=== PATIENT | male | born 1985 | race Caucasian/White ===

== ENCOUNTER 2019-07-10 05:18 | Emergency (ER) | payer SELFPAY ==
[~2019-07-10] VITALS: Ht 188 cm; Wt 158.8 kg
[2019-07-10] MEDS ORDERED: LABETALOL 20 MG/4 ML DISP.SYRIN. IVP ONE (05:45)
[2019-07-10] MEDS ORDERED: ASPIRIN 325 MG TABLET PO ONE (05:45)
--- NOTE | 2019-07-10 05:54 | RAD ---
EXAM: CHEST 1 VIEW History: SVT, chest pain COMPARISON: None available. TECHNIQUE: Single portable radiograph of the chest FINDINGS: The cardiac silhouette is unremarkable. The lungs are clear bilaterally. The costophrenic sulci are clear and well demarcated. IMPRESSION: No radiographic evidence of an acute cardiopulmonary process. Electronically signed by: Derrick Marrero MD (07/10/2019 5:51 AM) [facility]
[2019-07-10 06:04] LABS: BASO # 0.1 x10^3/uL (0.0-0.2); BASO % 1 % (0-3); EOS # 0.5 x10^3/uL (0.0-0.7); EOS % 5 % (0-3); HEMATOCRIT 49.3 % (39.0-53.0); HEMOGLOBIN 16.9 g/dL (13.0-17.5); LYMPH % 30 % (24-48); MEAN CORPUSCULAR HEMOGLOBIN 31 pg (25-35); MEAN CORPUSCULAR HGB CONC 34 g/dL (31-37); MEAN CORPUSCULAR VOLUME 90 fL (79-100); MONO # 0.7 x10^3/uL (0.0-1.1); MONO % 7 % (0-9); NEUT # 5.7 x10^3/uL (1.8-7.7); NEUT % 56 % (31-73); PLATELET COUNT 230 x10^3/uL (140-400); RED BLOOD COUNT 5.48 x10^6/uL (4.30-5.70); RED CELL DISTRIBUTION WIDTH 13.2 % (11.5-14.5); WHITE BLOOD COUNT 10.1 x10^3/uL (4.0-11.0)
--- NOTE | 2019-07-10 06:18 | PHYS DOC ---
Past Medical History Past Medical History: Other Additional Past Medical Histor: svt (TIAN MILLER MD) Alcohol Use: None Drug Use: None (TIAN MILLER MD) Adult General Chief Complaint Chief Complaint: RAPID HEART RATE HPI HPI 33-year-old male presents to the emergency department via EMS with complaints of chest pain, heart palpitations, shortness of breath. EMS arrived heart rate was around 180s, Valsalva maneuver used with improvement into the low 100s. Patient denies any nausea or vomiting. Patient has known history of hypertension however no medications. He has had history of palpitations in the past however lasting few seconds. The symptoms last longer of which he called EMS he denies any complaints at this time headache or visual changes, abdominal discomfort. Nothing makes his symptoms worse or better. (TIAN MILLER MD) Review of Systems Review of Systems Constitutional: Denies fever or chills [] Respiratory: + shortness of breath [] Cardiovascular: No additional information not addressed in HPI [] GI: Denies abdominal pain, nausea, vomiting, bloody stools or diarrhea [] Integument: Denies rash or skin lesions [] Neurologic: Denies headache, focal weakness or sensory changes [] All other systems were reviewed and found to be within normal limits, except as documented in this note. (TIAN MILLER MD) Current Medications Current Medications Current Medications Medications (Trade) Dose Ordered Sig/Shan Start Time Stop Time Status Last Admin Dose Admin Aspirin (Yue Aspirin) 325 mg 1X ONCE 07/10/19 05:45 07/10/19 05:46 DC 07/10/19 05:57 325 MG Labetalol HCl (Normodyne Iv Push) 10 mg 1X ONCE 07/10/19 05:45 07/10/19 05:46 DC 07/10/19 05:57 10 MG (MIC PETERS MD) Allergies Allergies Allergies Coded Allergies Type Severity Reaction Last Updated Verified No Known Drug Allergies 07/10/19 No (MIC PETERS MD) Physical Exam Physical Exam Constitutional: Well developed, well nourished, no acute distress, non-toxic appearance. [] Cardiovascular:Heart rate regular rhythm, no murmur [] Lungs & Thorax: Bilateral breath sounds clear to auscultation [] Abdomen: Bowel sounds normal, soft, no tenderness, no masses, no pulsatile masses. [] Skin: Warm, dry, no erythema, no rash. [] Back: No tenderness, no CVA tenderness. [] Extremities: No tenderness, no cyanosis, no clubbing, ROM intact, no edema. [] Neurologic: Alert and oriented X 3, no focal deficits noted. [] Psychologic: Affect normal, judgement normal, mood normal. [] (TIAN MILLER MD) Current Patient Data Vital Signs Vital Signs Date Time Temp Pulse Resp B/P (MAP) Pulse Ox O2 Delivery O2 Flow Rate FiO2 07/10/19 05:57 91 185/113 07/10/19 05:20 98.3 22 98 Room Air 98.3 (MIC PETERS MD) Lab Values Laboratory Tests Test 07/10/19 05:50 White Blood Count 10.1 x10^3/uL (4.0-11.0) Red Blood Count 5.48 x10^6/uL (4.30-5.70) Hemoglobin 16.9 g/dL (13.0-17.5) Hematocrit 49.3 % (39.0-53.0) Mean Corpuscular Volume 90 fL (79-100) Mean Corpuscular Hemoglobin 31 pg (25-35) Mean Corpuscular Hemoglobin Concent 34 g/dL (31-37) Red Cell Distribution Width 13.2 % (11.5-14.5) Platelet Count 230 x10^3/uL (140-400) Neutrophils (%) (Auto) 56 % (31-73) Lymphocytes (%) (Auto) 30 % (24-48) Monocytes (%) (Auto) 7 % (0-9) Eosinophils (%) (Auto) 5 % (0-3) H Basophils (%) (Auto) 1 % (0-3) Neutrophils # (Auto) 5.7 x10^3/uL (1.8-7.7) Lymphocytes # (Auto) 3.0 x10^3/uL (1.0-4.8) Monocytes # (Auto) 0.7 x10^3/uL (0.0-1.1) Eosinophils # (Auto) 0.5 x10^3/uL (0.0-0.7) Basophils # (Auto) 0.1 x10^3/uL (0.0-0.2) Sodium Level 141 mmol/L (136-145) Potassium Level 4.2 mmol/L (3.5-5.1) Chloride Level 105 mmol/L (98-107) Carbon Dioxide Level 28 mmol/L (21-32) Anion Gap 8 (6-14) Blood Urea Nitrogen 12 mg/dL (8-26) Creatinine 1.0 mg/dL (0.7-1.3) Estimated GFR (Cockcroft-Gault) 87.2 BUN/Creatinine Ratio 12 (6-20) Glucose Level 104 mg/dL (70-99) H Calcium Level 9.8 mg/dL (8.5-10.1) Total Bilirubin 1.0 mg/dL (0.2-1.0) Aspartate Amino Transferase (AST) 26 U/L (15-37) Alanine Aminotransferase (ALT) 46 U/L (16-63) Alkaline Phosphatase 59 U/L (46-116) Troponin I Quantitative < 0.017 ng/mL (0.000-0.055) Total Protein 7.2 g/dL (6.4-8.2) Albumin 3.9 g/dL (3.4-5.0) Albumin/Globulin Ratio 1.2 (1.0-1.7) Laboratory Tests 07/10/19 05:50 Laboratory Tests 07/10/19 05:50 (MIC PETERS MD) EKG EKG EKG reviewed, normal sinus rhythm, heart rate 93, no evidence of acute ST or T wave change appreciated[] Interpretation Time: Interpretation on 0 529 (TIAN MILLER MD) Radiology/Procedures Radiology/Procedures [facility] [address], [place] [id number] IMAGING REPORT Signed PATIENT: CARLIE FRANCOIS ACCOUNT: [id number] : 1985 LOCATION: ER AGE: 33 SEX: M EXAM STATUS: REG ER ORD. PHYSICIAN: TIAN MILLER MD REASON: SVT, chest pain/sob PROCEDURE: CHEST AP ONLY EXAM: CHEST 1 VIEW History: SVT, chest pain COMPARISON: None available. TECHNIQUE: Single portable radiograph of the chest FINDINGS: The cardiac silhouette is unremarkable. The lungs are clear bilaterally. The costophrenic sulci are clear and well demarcated. IMPRESSION: No radiographic evidence of an acute cardiopulmonary process. Electronically signed by: Derrick Marrero MD (07/10/2019 5:51 AM) [facility] DICTATED and SIGNED BY: DERRICK MARRERO MD DATE: 07/10/19 0551 [] (TIAN MILLER MD) Course & Med Decision Making Course & Med Decision Making Pertinent Labs and Imaging studies reviewed. (See chart for details) Care transitioned to Dr. Peters at shift change. Labetalol 10mg IV x 1 provided for elevated BP. Discussed case with Dr. Peters [] (TIAN MILLER MD) Course & Med Decision Making 6:40 AM: Pt care assumed at shift change, remains stable, asymptomatic, SBP 160's, states BP high when going to doctor but no formal Dx in past. Discussed test results, valsalva for future palpitation episodes, need for cardiology and PCP f/u for BP management, and return precautions. (MIC PETERS MD) Dragon Disclaimer Dragon Disclaimer This electronic medical record was generated, in whole or in part, using a voice recognition dictation system. (TIAN MILLER MD) Departure Departure Impression: Primary Impression: SVT (supraventricular tachycardia) Additional Impression: Hypertension Disposition: 01 HOME, SELF-CARE Condition: STABLE Referrals: BOBO SALGADO DO (PCP) CHARLEE VÁZQUEZ MD Patient Instructions: Hypertension, Supraventricular Tachycardia Scripts Metoprolol Tartrate (METOPROLOL TARTRATE) 25 Mg Tablet 1 TAB PO BID, #60 TAB 0 Refills Prov: MIC PETERS MD 07/10/19 Problem Qualifiers TIAN MILLER MD Jul 10, 2019 06:18 MIC PETERS MD Jul 10, 2019 06:45
[2019-07-10 06:25] LABS: CALCIUM 9.8 mg/dL (8.5-10.1); GFR 87.2; POTASSIUM 4.2 mmol/L (3.5-5.1)
[2019-07-10 06:30] VITALS: BP 162/95
[2019-07-10 06:32] LABS: ALBUMIN 3.9 g/dL (3.4-5.0); ALBUMIN/GLOBULIN RATIO 1.2 (1.0-1.7); TOTAL PROTEIN 7.2 g/dL (6.4-8.2)
[2019-07-10] MEDS ORDERED: METO25TA4 PO (06:45)
--- NOTE | 2019-07-10 07:35 | EKG ---
[facility] [address] [place] [address] Test Date: 2019-07-10 Test Time: 05:27:04 Pat Name: CARLIE FRANCOIS Department: Room: Gender: M [employer]: : 1985 Requested By: TIAN MILLER Order Number: [id number] Reading MD: Measurements Intervals [place] Rate: 93 P: 25 [place]: 176 QRS: 21 QRSD: 104 T: 24 QT: 352 QTc: 440 Interpretive Statements SINUS RHYTHM QRS(T) CONTOUR ABNORMALITY CONSIDER ANTEROSEPTAL MYOCARDIAL DAMAGE POSSIBLY ABNORMAL ECG RI6.01 No previous ECG available for comparison
== END 2019-07-10 06:55 | disposition home or self-care (01) ==
LOC: ER 05:18
DX: I47.1 Supraventricular tachycardia (principal); I10 Essential (primary) hypertension; R07.89 Other chest pain
CPT/HCPCS: 36415; 71045; 80053; 84484; 85025; 93005; 96374; 99285; J3490